=== PATIENT | male | born 1985 | race Caucasian/White ===

== ENCOUNTER 2020-02-21 16:36 | Emergency (ER) | payer SELFPAY ==
[~2020-02-21] VITALS: Ht 170.2 cm; Wt 79.4 kg
[~2020-02-21 16:36] MED LIST: BENTYL10 MG PO; Bactrim Ds Tab1 EACH PO; CEPH500 PO; Flagyl500 MG PO; HYDACE5 PO; Keflex500 MG PO; LEVFLO500 PO; NAPR500 PO; PENVK250 PO; PROM25 PO; Percocet 5-3251 EACH PO; Pyridium200 MG PO; RXHYDACE PO; RXTRAM50 PO; SULTRIDS PO; TRAM50 PO; Vibramycin100 MG PO; Zofran Odt4 MG SL
[2020-02-21] MEDS ORDERED: NEOPOLHCSU LEFTEAR (17:21)
== END 2020-02-21 17:30 | disposition home or self-care (01) ==
LOC: ER 16:36
DX: H60.92 Unspecified otitis externa, left ear (principal); F17.200 Nicotine dependence, unspecified, uncomplicated
CPT/HCPCS: 99282

== ENCOUNTER 2020-04-21 19:05 | Emergency (ER) | payer OTHER ==
[~2020-04-21] VITALS: Ht 172.7 cm; Wt 81.7 kg
[~2020-04-21 19:05] MED LIST changes: +NEOPOLHCSU LEFTEAR
== END 2020-04-21 19:54 | disposition home or self-care (01) ==
LOC: ER 19:05
DX: Z02.89 Encounter for other administrative examinations (principal); M25.522 Pain in left elbow; F17.200 Nicotine dependence, unspecified, uncomplicated; W22.8XXA Striking against or struck by other objects, initial encounter
CPT/HCPCS: 73080; 99283-25

== ENCOUNTER 2020-05-20 05:16 | Emergency (ER) | payer OTHER ==
[~2020-05-20 05:16] MED LIST changes: +HYDR1TAB94 PO
== END 2020-05-20 06:17 | disposition left against medical advice (07) ==
LOC: ER 05:16
DX: Z53.21 Procedure and treatment not carried out due to patient leaving prior to being seen by health care provider (principal)

== ENCOUNTER 2020-05-24 18:21 | Emergency (ER) | payer OTHER ==
[~2020-05-24] VITALS: Ht 170.2 cm; Wt 83.9 kg
[2020-05-24 19:08] LABS: BASOPHILS ABSOLUTE AUTO 0.07 K/mm3 (0.00-0.23); BASOPHILS PERCENT AUTO 1 % (0-2); EOSINOPHILS PERCENT AUTO 2 % (0-6); Hematocrit 42.2 % (37.0-53.0); Hemoglobin 14.4 g/dL (13.5-17.5); IMMATURE GRAN ABSOLUTE AUTO 0.07 K/mm3 (0.00-0.10); IMMATURE GRAN PERCENT AUTO 1 % (0-1); LYMPHOCYTES ABSOLUTE AUTO 1.85 K/mm3 (0.84-5.20); LYMPHOCYTES PERCENT AUTO 16 % (21-46); MONOCYTES ABSOLUTE AUTO 1.02 K/mm3 (0.16-1.47); MONOCYTES PERCENT AUTO 9 % (4-13); Mean Corpuscular HGB 30.1 pg (26.0-34.0); Mean Corpuscular HGB Conc 34.1 g/dL (31.5-36.5); Mean Corpuscular Volume 88 fL (80-100); Mean Platelet Volume 11.2 fL (9.1-12.4); NEUTROPHILS ABSOLUTE AUTO 8.76 K/mm3 (1.96-9.15); NEUTROPHILS PERCENT AUTO 73 % (41-73); Platelet Count 296 K/mm3 (150-400); RDW Coefficient Variation 12.9 % (11.7-14.2); RDW Standard Deviation 41.9 fL (35.1-46.3); Red Blood Cell Count 4.78 M/mm3 (4.30-5.90); White Blood Cell Count 11.97 K/mm3 (4.00-11.30)
[2020-05-24 19:32] LABS: Alanine Aminotransfer (ALT/SGP 24 U/L (12-78); Albumin, Blood 3.7 g/dL (3.4-5.0); Alk Phos 98 U/L (50-136); Anion Gap 8 mmol/L (6-16); Aspartate Aminotrans (AST/SGOT 25 U/L (12-37); Bilirubin, Total 0.5 mg/dL (0.1-1.0); Blood Urea Nitrogen 24 mg/dL (8-24); CO2, Blood 26 mmol/L (21-32); Chloride, Blood 112 mmol/L (98-108); Creatinine, Blood 1.33 mg/dL (0.60-1.20); Globulin, Blood 3.8 g/dL (2.2-4.0); Glomerular Filtration Rate >60 (60-); Glucose, Blood 132 mg/dL (70-99); Potassium, Blood 3.7 mmol/L (3.5-5.5); Sodium, Blood 146 mmol/L (136-145); Total Protein, Blood 7.5 g/dL (6.4-8.2)
[2020-05-24 19:36] LABS: Source, Urine Clean Catch
[2020-05-24 19:42] LABS: Appearance, Urine Hazy (Clear); Bilirubin, Urine Neg (Neg); Blood, Urine 5+ (Neg); Color, Urine Amber (P-Yellow); Glucose Qualitative, Urine Neg (Neg); Ketones, Urine 1+ (Neg); Leukocyte Esterase, Urine 1+ (Neg); Nitrite, Urine Neg (Neg); Protein, Urine 2+ (Neg); Urobilinogen, Urine 2+ (Normal)
[2020-05-24 19:49] LABS: Mucus Mod (0-Heavy)
[2020-05-24 19:50] LABS: Red Blood Cells, Urine 25-50 /hpf (0-2); Squamous Epithelial Cells Rare /hpf (Few)
[2020-05-24 19:51] LABS: Amorphous Light (0-Heavy); Bacteria Rare /hpf
[2020-05-24 19:52] LABS: Calcium Oxalate Crystals Rare /hpf
[2020-05-24] MEDS ORDERED: Flomax0.4 MG PO (20:13)
[2020-05-24] MEDS ORDERED: KETO10 PO (20:13)
== END 2020-05-24 20:41 | disposition home or self-care (01) ==
LOC: ER 18:21
PROVIDERS: Emergency Medicine
DX: N13.2 Hydronephrosis with renal and ureteral calculous obstruction (principal); F17.200 Nicotine dependence, unspecified, uncomplicated
CPT/HCPCS: 36415; 80053; 81001; 85025; 87086; 96361; 96374; 99283-25; J1885; J7030

== ENCOUNTER 2020-10-21 17:13 | Emergency (ER) | payer OTHER ==
[~2020-10-21] VITALS: Ht 170.2 cm; Wt 81.7 kg
[~2020-10-21 17:13] MED LIST changes: +Flomax0.4 MG PO; +KETO10 PO
== END 2020-10-21 19:20 | disposition left against medical advice (07) ==
LOC: ER 17:13
DX: R21 Rash and other nonspecific skin eruption (principal); Z53.21 Procedure and treatment not carried out due to patient leaving prior to being seen by health care provider
CPT/HCPCS: 99282

== ENCOUNTER 2020-11-16 13:59 | Emergency (ER) | payer OTHER ==
[~2020-11-16] VITALS: Ht 170.2 cm; Wt 83.9 kg
[2020-11-16] MEDS ORDERED: [UNRECOGNIZED DRUG - OTHER] TOP (17:39)
[2020-11-18 03:08] LABS: CHLAMYDIA TRACHOMATIS, NAA Negative (Negative)
== END 2020-11-16 17:55 | disposition home or self-care (01) ==
LOC: ER 13:59
PROVIDERS: Physician Assistant
DX: A63.0 Anogenital (venereal) warts (principal); F17.200 Nicotine dependence, unspecified, uncomplicated; Z79.899 Other long term (current) drug therapy
CPT/HCPCS: 82947; 87491; 87591; 99283

== ENCOUNTER 2021-12-13 01:25 | Emergency (ER) | payer OTHER ==
[~2021-12-13] VITALS: Ht 170.2 cm; Wt 83.9 kg
[~2021-12-13 01:25] MED LIST changes: +[UNRECOGNIZED DRUG - OTHER] TOP
== END 2021-12-13 06:33 | disposition home or self-care (01) ==
LOC: ER 01:25
DX: S89.92XA Unspecified injury of left lower leg, initial encounter (principal); F17.200 Nicotine dependence, unspecified, uncomplicated; X50.1XXA Overexertion from prolonged static or awkward postures, initial encounter; Y93.51 Activity, roller skating (inline) and skateboarding; Z79.899 Other long term (current) drug therapy
CPT/HCPCS: 73564; A9270; J1885

== ENCOUNTER 2022-05-18 15:39 | Emergency (ER) | payer OTHER ==
[~2022-05-18] VITALS: Ht 167.6 cm; Wt 77.1 kg
== END 2022-05-18 19:53 | disposition left against medical advice (07) ==
LOC: ER 15:39
DX: Z53.21 Procedure and treatment not carried out due to patient leaving prior to being seen by health care provider (principal)
CPT/HCPCS: 99281

== ENCOUNTER 2022-05-20 19:59 | Emergency (ER) | payer OTHER ==
[~2022-05-20] VITALS: Ht 170.2 cm; Wt 79.4 kg
[2022-05-20] MEDS ORDERED: IBUP800 PO (21:27)
[2022-05-20] MEDS ORDERED: TOPICAINE 5113 GM TOP (21:27)
== END 2022-05-20 21:54 | disposition home or self-care (01) ==
LOC: ER 19:59
DX: S83.422A Sprain of lateral collateral ligament of left knee, initial encounter (principal); F17.200 Nicotine dependence, unspecified, uncomplicated; V00.131A Fall from skateboard, initial encounter
CPT/HCPCS: 73562-LT; 99283-25; A9270

== ENCOUNTER 2022-07-24 18:08 | Emergency (ER) | payer OTHER ==
[~2022-07-24] VITALS: Ht 167.6 cm; Wt 77.1 kg
[~2022-07-24 18:08] MED LIST changes: +IBUP800 PO; +TOPICAINE 5113 GM TOP
== END 2022-07-24 20:21 | disposition home or self-care (01) ==
LOC: ER 18:08
DX: T78.40XA Allergy, unspecified, initial encounter (principal); F17.200 Nicotine dependence, unspecified, uncomplicated; X58.XXXA Exposure to other specified factors, initial encounter; Z79.899 Other long term (current) drug therapy
CPT/HCPCS: A9270; J1100

== ENCOUNTER → 2022-11-18 | Outpatient (CLI) | payer OTHER ==
[2022-11-21 10:31] LABS: RPR Reactive (Nonreactive)
== END | disposition home or self-care (01) ==
LOC: LAB 13:06 → LAB SHORT 13:06
PROVIDERS: Registered Nurse Community Health
DX: Z20.2 Contact with and (suspected) exposure to infections with a predominantly sexual mode of transmission (principal)
CPT/HCPCS: 86592; 86593

== ENCOUNTER 2023-03-17 17:37 | Emergency (ER) | payer OTHER ==
[~2023-03-17] VITALS: Ht 167.6 cm; Wt 79.4 kg
[2023-03-17 18:11] VITALS: BP 127/84
== END 2023-03-17 18:58 | disposition home or self-care (01) ==
LOC: ER 17:37
DX: M79.645 Pain in left finger(s) (principal); Z79.1 Long term (current) use of non-steroidal anti-inflammatories (NSAID); Z79.899 Other long term (current) drug therapy; F17.200 Nicotine dependence, unspecified, uncomplicated; Z79.890 Hormone replacement therapy
CPT/HCPCS: 73130; 99283-25

== ENCOUNTER 2025-06-10 21:23 | Emergency (ER) | payer OTHER ==
[~2025-06-10] VITALS: Ht 167.6 cm; Wt 81.7 kg
[2025-06-10 21:38] VITALS: BP 136/91
[2025-06-10 22:52] LABS: Source, Urine Clean Catch
[2025-06-10 23:06] LABS: Bilirubin, Urine Neg (Neg); Glucose Qualitative, Urine Neg (Neg); Ketones, Urine Neg (Neg); Leukocyte Esterase, Urine 1+ (Neg); Protein, Urine 3+ (Neg); Specific Gravity, Urine 1.025 (1.003-1.022); Urobilinogen, Urine 1+ (Normal)
[2025-06-10 23:08] LABS: BASOPHILS ABSOLUTE AUTO 0.09 K/mm3 (0.00-0.23); BASOPHILS PERCENT AUTO 1 % (0-2); EOSINOPHILS ABSOLUTE AUTO 0.31 K/mm3 (0.00-0.68); EOSINOPHILS PERCENT AUTO 3 % (0-6); Hematocrit 38.1 % (37.0-53.0); Hemoglobin 12.7 g/dL (13.5-17.5); IMMATURE GRAN ABSOLUTE AUTO 0.03 K/mm3 (0.00-0.10); IMMATURE GRAN PERCENT AUTO 0 % (0-1); LYMPHOCYTES ABSOLUTE AUTO 2.42 K/mm3 (0.84-5.20); LYMPHOCYTES PERCENT AUTO 25 % (21-46); MONOCYTES ABSOLUTE AUTO 1.15 K/mm3 (0.16-1.47); MONOCYTES PERCENT AUTO 12 % (4-13); Mean Corpuscular HGB Conc 33.3 g/dL (31.5-36.5); Mean Corpuscular Volume 91 fL (80-100); NEUTROPHILS ABSOLUTE AUTO 5.58 K/mm3 (1.96-9.15); NEUTROPHILS PERCENT AUTO 58 % (41-73); NRBC ABSOLUTE 0.00 K/mm3 (0.00-0.02); NRBC Auto 0.0 /100 WBC (0.0-0.2); Platelet Count 310 K/mm3 (150-400); RDW Coefficient Variation 13.4 % (11.7-14.2); RDW Standard Deviation 44.8 fL (35.1-46.3)
[2025-06-10 23:15] LABS: Color, Urine Brown (P-Yellow)
[2025-06-10 23:21] LABS: Red Blood Cells, Urine TNTC /hpf (0-2); White Blood Cells, Urine 0-2 /hpf (0-5)
[2025-06-10 23:38] LABS: Alanine Aminotransfer (ALT/SGP 29.0 U/L (12-78); Albumin, Blood 3.2 g/dL (3.4-5.0); Albumin/Globulin Ratio 1.0 (0.8-1.8); Anion Gap 9.0 mmol/L (3-11); Aspartate Aminotrans (AST/SGOT 26.0 U/L (12-37); Bilirubin, Total 0.3 mg/dL (0.1-1.0); Blood Urea Nitrogen 25.0 mg/dL (8-24); CO2, Blood 29.0 mmol/L (21-32); Calcium, Blood 8.8 mg/dL (8.5-10.1); Chloride, Blood 105.0 mmol/L (98-108); Creatinine, Blood 0.76 mg/dL (0.60-1.20); Globulin, Blood 3.2 g/dL (2.2-4.0); Glucose, Blood 88.0 mg/dL (70-99); Potassium, Blood 3.9 mmol/L (3.5-5.5); Sodium, Blood 139.0 mmol/L (136-145); Total Protein, Blood 6.4 g/dL (6.4-8.2)
== END 2025-06-11 02:00 | disposition home or self-care (01) ==
LOC: ER 21:23
PROVIDERS: Student in an Organized Health Care Education/Training Program
DX: R31.0 Gross hematuria (principal); D64.9 Anemia, unspecified; F17.200 Nicotine dependence, unspecified, uncomplicated
CPT/HCPCS: 76770; 80053; 81001; 85025; 99283